=== PATIENT | female | born 1995 | race Caucasian/White ===

== ENCOUNTER 2016-06-10 18:19 | Emergency (ER) | payer BC, MEDICAID ==
[~2016-06-10] VITALS: Ht 154.9 cm; Wt 61.0 kg
[~2016-06-10 18:19] MED LIST: BACT2OIN TOP; BACT5UDC PO; TYLCOD5S PO; Z.0.NO CURRENT MEDS
[2016-06-10 18:25] VITALS: BP 132/75; PULSE 99; RESP 16; TEMP 98.2; O2SAT 100
[2016-06-10] MEDS ORDERED: BENA25TA3 PO (18:38)
[2016-06-10] MEDS ORDERED: ZYRT10CA PO (18:38)
--- NOTE | 2016-06-10 18:58 | PD ---
HPI Chief Complaint: Skin Problem Time Seen by Provider: 19:01 Travel History International Travel<30 days: No Contact w/Intl Traveler<30days: No Traveled to known affect area: No History of Present Illness HPI 20-year-old female with PMH of eczema presents to the ED for evaluation of three -hour history of itchy rash. Gradual onset, now covering the entire body. Patient denies swelling of the face or mouth, difficulty swallowing secretions, breathing difficulties or wheezing. She treated with 3 tablets of Benadryl with no improvement of symptoms. Patient states that she uses topical steroids for eczema flares and has been out of this medication for approximately one week. She endorses follow-up with the manufacturing specialist in early June. PFSH Past Medical History Diminished Hearing: No Integumentary: Yes (eczema) Immunizations Current: Yes Seizures: Yes Tetanus Vaccination: < 5 Years Influenza Vaccination: No ?: Not LMP: 1 week ago Past Surgical History Surgical History: No Previous Surgery Social History Alcohol Use: No Tobacco Use: No Substance Use: No Allergies-Medications (Allergen,Severity, Reaction): Coded Allergies: Latex (Verified Allergy, Mild, 06/10/16) Reported Meds & Prescriptions Reported Meds & Active Scripts Active Fluocinolone Topical (Fluocinolone Acetonide) 0.01% Cream 1 Applic TOPICAL DAILY Prednisone 20 Mg Tab 40 Mg PO DAILY 5 Days Vistaril (Hydroxyzine Pamoate) 50 Mg Cap 50 Mg PO TID 5 Days Reported Zyrtec Allergy (Cetirizine HCl) 10 Mg Cap 10 Mg PO DAILY Benadryl Allergy (Diphenhydramine HCl) 25 Mg Tab 50 Mg PO ONCE PRN Review of Systems Except as stated in HPI: all other systems reviewed are Neg Physical Exam Narrative GENERAL: Well-nourished, well-developed white female in no acute distress. SKIN: Warm and dry. There are erythematous, blanching wheals and papules distributed over the skin surface. HEAD: Normocephalic. Atraumatic. EYES: No scleral icterus. No injection or drainage. PERRLA. EOMI. ENT: [place] tympanic membranes bilaterally. Nasal mucosa is moist. Oropharynx without erythema, edema or exudate. Floor of the mouth is soft. Uvula midline. Airway patent. NECK: Supple, trachea midline. No JVD or lymphadenopathy. CARDIOVASCULAR: Regular rate and rhythm without murmurs, gallops, or rubs. No carotid bruits. 2+ DP and radial pulses bilaterally. RESPIRATORY: Breath sounds clear and equal bilaterally. No accessory muscle use. GASTROINTESTINAL: Abdomen soft, non-tender, nondistended. + Bowel sounds MUSCULOSKELETAL: No cyanosis, or edema. Patient is ambulatory and moves the extremities spontaneously. BACK: Nontender without obvious deformity. No CVA tenderness. Data Data Last Documented VS Vital Signs Date Time Temp Pulse Resp B/P Pulse Ox O2 Delivery O2 Flow Rate FiO2 06/10/16 18:25 98.2 99 16 132/75 100 Orders Hydroxyzine Hcl (Atarax) (06/10/16 19:00) Dexamethasone Inj (Decadron Inj) (06/10/16 19:00) [facility] Medical Decision Making Medical Screen Exam Complete: Yes Emergency Medical Condition: Yes Differential Diagnosis Urticaria versus eczema flare versus contact dermatitis versus angioedema versus other Narrative Course 20-year-old female with PMH of eczema presents to the ED for evaluation of three -hour history of itchy rash. Gradual onset, now covering the entire body. Patient denies swelling of the face or mouth, difficulty swallowing secretions, breathing difficulties or wheezing. She treated with 3 tablets of Benadryl with no improvement of symptoms. Patient states that she uses topical steroids for eczema flares and has been out of this medication for approximately one week. She endorses follow-up with the manufacturing specialist in early June. Vitals reviewed. Physical exam reveals urticarial wheals along the majority of the skin surface. Airway patent, uvula midline, no facial swelling, chest clear to auscultation bilaterally. Patient was administered by mouth Vistaril and IM Decadron. Recheck reveals some improvement of the itching and rash. Patient was prescribed stepdown steroid 5 days, 50 mg Vistaril by mouth 3 times a day as needed for itching. The patient's topical steroid prescription was refilled. We discussed emergent reasons to return. Mom and patient and again understanding of instructions and agreeable to the care plan. The patient is stable and discharged home. Diagnosis Primary Impression: Urticaria Referrals: [employer] Patient Instructions: General Instructions, Urticaria (ED) Additional Instructions: Rest, hydrate. Drink plenty of fluids. Take cool showers to avoid worsening of the itching. Steroid stepdown therapy begins tomorrow. Vistaril every 6-8 hours for itching. Apply ointment as prescribed. Follow-up with the manufacturing specialist. Return to the ED for worsening of symptoms as discussed. Return to the ED for any urgent or emergent medical condition. Med/Other Pt SpecificInfo: Prescription(s) given Scripts Fluocinolone Topical 0.01% Cream1 Applic TOPICAL DAILY #15 GM Ref 0 Prov:Del Nichols MD 06/10/16 Prednisone 20 Mg Tab40 Mg PO DAILY 5 Days Ref 0 Prov:Del Nichols MD 06/10/16 Hydroxyzine Pamoate (Vistaril)50 Mg Cap50 Mg PO TID 5 Days Ref 0 Prov:Del Nichols MD 06/10/16 Disposition: 01 DISCHARGE HOME Condition: Stable Isabel Terrazas Jun 10, 2016 18:58
[2016-06-10] MEDS ORDERED: hydrOXYzine HCL 25 MG TAB PO ONE (19:00)
[2016-06-10] MEDS ORDERED: DEXAMETHASONE SOD PHOS 4 MG/ML VIAL IM ONE (19:00)
[2016-06-10] MEDS ORDERED: PRED20 PO (19:45)
[2016-06-10] MEDS ORDERED: VIST50CA PO (19:45)
[2016-06-10] MEDS ORDERED: FLUO0.013 TOPICAL (19:45)
== END 2016-06-10 19:52 | disposition home or self-care (01) ==
LOC: PHEFT 18:19
DX: L50.9 Urticaria, unspecified (principal); L30.9 Dermatitis, unspecified
CPT/HCPCS: 96372; 99282; J1100